=== PATIENT | female | born 1995 | race American Indian/Alaskan Native ===

== ENCOUNTER 2017-07-30 11:13 | Outpatient (CLI) | payer BC, MEDICAID ==
[2017-07-30 11:45] VITALS: BP 127/61
--- NOTE | 2017-07-30 12:55 | Ultrasound Report ---
ULTRASOUND OB LIMITED History: Placenta scan Technique: Transabdominal ultrasound with Doppler interrogation. Gestation: Single Position: Cephalic Placenta: Fundal Placental Grade: 1 No evidence for abruption. Heart Rate: 148 BPM
[2017-07-30] MEDS ORDERED: LACTATED RINGERS 500 ML IV ONE (15:01)
== END 2017-07-30 16:08 | disposition home or self-care (01) ==
LOC: TRG 11:13 → LD 11:14 → TRG 16:08
PROVIDERS: ATTEND Obstetrics & Gynecology
DX: O47.03 False labor before 37 completed weeks of gestation, third trimester (principal); Z3A.32 32 weeks gestation of pregnancy
CPT/HCPCS: 59025; 76815

== ENCOUNTER 2017-08-14 19:04 | Outpatient (CLI) | payer MEDICAID, OTHER ==
[2017-08-14] MEDS ORDERED: LACTATED RINGERS 500 ML IV ONE (20:32)
[2017-08-14 22:46] LABS: Bilirubin,Urine NEG (Negative); Blood,Urine NEG (Negative); Color,Urine Yellow (Yellow); Mucus,Urine FEW /HPF; Nitrite,Urine NEG (Negative); Protein,Urine <15 mg/dL mg/dL (Negative); Urobilinogen,Urine < 2.0 mg/dL (<2.0)
[2017-08-14 23:05] VITALS: BP 139/75
== END 2017-08-14 20:52 | disposition home or self-care (01) ==
LOC: TRG 19:04
PROVIDERS: ATTEND Obstetrics & Gynecology
DX: O36.8130 Decreased fetal movements, third trimester, not applicable or unspecified (principal); Z3A.34 34 weeks gestation of pregnancy
CPT/HCPCS: 59025; 81001

== ENCOUNTER 2017-08-28 10:03 | Inpatient (IN) | payer MEDICAID ==
[2017-08-28] MEDS ORDERED: LACTATED RINGERS 500 ML IV ONE (10:28)
[2017-08-28] MEDS ORDERED: SUBLIMAZE IV ONE (10:38)
[2017-08-28] MEDS ORDERED: SUBLIMAZE ONE (11:26)
[2017-08-28] MEDS ORDERED: BRETHINE IVP PRN ×2 (14:13→14:19)
[2017-08-28] MEDS ORDERED: ZOFRAN IV PRN (14:13)
[2017-08-28] MEDS ORDERED: NARCAN 0.4 MG/1 ML IV PRN ×2 (14:13→22:42)
[2017-08-28] MEDS ORDERED: SUBLIMAZE IV PRN ×2 (14:13→14:19)
[2017-08-28] MEDS ORDERED: ePHEDrine SULFATE IV PRN ×3 (14:13→15:50)
[2017-08-28] MEDS ORDERED: XYLOCAINE 2% INFILTRATI ONE ×2 (14:13→14:19)
[2017-08-28] MEDS ORDERED: MINERAL OIL PO PRN ×2 (14:13→14:19)
[2017-08-28] MEDS ORDERED: BRETHINE SUB-Q PRN ×2 (14:13→14:19)
[2017-08-28] MEDS ORDERED: STADOL IV PRN (14:19)
[2017-08-28] MEDS ORDERED: POLYCILLIN/NS 2 GM/100 ML 2 GM/100 ML BAG IV ONE (14:20)
[2017-08-28] MEDS ORDERED: STADOL ONE (14:26)
[2017-08-28] MEDS ORDERED: PITOCin/NS 20 UNIT/1000ML DRIP 20 UNITS/1,000 ML BAG IV SCH ×4 (15:00→23:00)
[2017-08-28] MEDS ORDERED: LACTATED RINGERS 1,000 ML IV SCH ×3 (15:00→21:00)
[2017-08-28 15:13] LABS: Hematocrit 36.5 % (30.3-42.9); Hemoglobin 12.1 gm/dl (10.1-14.3); Mean Corpuscular HGB Conc 33 % (30-34); Mean Corpuscular Hemoglobin 31 pg (28-32); Mean Corpuscular Volume 93 fl (79-97); Platelet Count 180 K/mm3 (140-440); Red Blood Count 3.93 M/mm3 (3.65-5.03); Red Cell Distribution Width 14.6 % (13.2-15.2)
[2017-08-28] MEDS ORDERED: NACL 0.45% 1000 ML 0 ML IV ONE (15:45)
[2017-08-28] MEDS ORDERED: NACL 0.9% 1000 ML 1,000 ML ONE ×2 (15:47→18:15)
[2017-08-28] MEDS ORDERED: NARCAN 2 MG/2 ML IV PRN (15:50)
--- NOTE | 2017-08-28 15:50 | Anesthesia Consultation ---
Anesthesia Consult and Med Hx Date of service: 08/28/17 - Airway Anesthetic Teeth Evaluation: Good ROM Head & Neck: Adequate Mental/Hyoid Distance: Adequate Mallampati Class: Class II Intubation Access Assessment: Probably Good - Pre-Operative Health Status ASA Pre-Surgery Classification: ASA3 Proposed Anesthetic Plan: Epidural, Spinal - Pulmonary Hx Asthma: No - Cardiovascular System Hx Hypertension: No - Central Nervous System Hx Seizures: No Hx Psychiatric Problems: No - Endocrine Hx Renal Disease: No Hx Hypothyroidism: No Hx Hyperthyroidism: No - Hematic Hx Anemia: No Hx Sickle Cell Disease: No - Other Systems Hx Alcohol Use: No Hx Obesity: Yes (BMI 41.6)
[2017-08-28] MEDS ORDERED: fentaNYL-BUPIV 2 MCG/ML-0.125% 200 MCG/100 ML BAG EPIDURAL SCH (16:00)
[2017-08-28] MEDS ORDERED: AMPICILLIN/NS 1 GM/50 ML 1 GM/50 ML BAG IV SCH (18:00)
--- NOTE | 2017-08-28 18:56 | History and Physical Report ---
History of Present Illness Date of examination: 08/28/17 Date of admission: 08/28/17 10:04 Chief complaint: Contractions History of present illness: 21yo AA Fe RICCARDO 09/20/2017 (LMP), 36 weeks 5 days presented with contractions starting this am at 0730. Cervical change from 1cm/thick to 3cm noted after walking. Admit for Spontaneous labor. Pt initiated early care with [facility] at 6+ wks. 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 denies: abnormal PAP smear (HSV2, On supression), hepatitis B, hepatitis C, HIV, syphilis Family/Genetic History: hypertension, cancer (Breast), other (Asthma) Social history: no significant social history, lives with family, full code. denies: smoking, alcohol abuse, prescription drug abuse, IV drug use - Obstetrical History Expected Date of Delivery: 09/20/17 Actual Gestation: 36 Week(s) 5 Day(s) : 2 Para: 1 Hx # Term Pregnancies: 1 Number of Pregnancies: 0 Spontaneous Abortions: 0 Induced : 0 Number of Living Children: 1 #1 Infant Gender: Female year: 2[age][birth year] Birthweight: 3.345 kg Method of Delivery: Vaginal Gestational age at delivery: 40 Complications: none Medications and Allergies Allergies Allergy/AdvReac Type Severity Reaction Status Date / Time No Known Allergies Allergy Verified 08/14/17 20:32 Active Meds: Active Medications Butorphanol Tartrate (Stadol) 2 mg IV Q2H PRN PRN Reason: Pain , Severe (7-10) Last Admin: 08/28/17 14:30 Dose: 2 mg Ephedrine Sulfate (Ephedrine Sulfate) 10 mg IV Q2M PRN PRN Reason: Hypotension Ephedrine Sulfate (Ephedrine Sulfate) 10 mg IV Q2M PRN PRN Reason: Hypotension Stop: 08/29/17 15:49 Fentanyl (Sublimaze) 100 mcg IV Q2H PRN PRN Reason: Labor Pain Lactated Ringer's (Lactated Ringers) 1,000 mls @ 125 mls/hr IV DIRECT VINCENT Last Admin: 08/28/17 14:41 Dose: 125 mls/hr Oxytocin/Sodium Chloride (Pitocin/Ns 20 Unit/1000ml Drip) 20 units in 1,000 mls @ 125 mls/hr IV DIRECT VINCENT Fentanyl/Bupivacaine/Sodium Chlor (Fentanyl-Bupiv 2 Mcg/Ml-0.125%) 200 mcg in 100 mls @ 12 mls/hr EPIDURAL TITR VINCENT; Protocol Last Admin: 08/28/17 16:59 Dose: 12 mls/hr Ampicillin Sodium (Ampicillin/Ns 1 Gm/50 Ml) 1 gm in 50 mls @ 100 mls/hr IV Q4HR VINCENT Mineral Oil (Mineral Oil) 30 ml PO QHS PRN PRN Reason: Constipation Naloxone HCl (Narcan 2 Mg/2 Ml) 0.2 mg IV Q5M PRN PRN Reason: Respiratory sedation Ondansetron HCl (Zofran) 4 mg IV Q8H PRN PRN Reason: Nausea And Vomiting Terbutaline Sulfate (Brethine) 0.25 mg SUB-Q ONCE PRN PRN Reason: Hyperstimulation/Hypertonicity Terbutaline Sulfate (Brethine) 0.25 mg IVP ONCE PRN PRN Reason: Hyperstimulation/Hypertonicity Review of Systems All systems: negative Cardiovascular: no chest pain, no shortness of breath Breasts: deferred Gastrointestinal: abdominal pain, no nausea, no vomiting, no diarrhea, no constipation Genitourinary: normal appearance (gravid), pelvic pain, contractions, no vaginal bleeding, no vaginal discharge, no leakage of fluid Rectal Exam: deferred Integumentary: no rash - Physical Exam Breasts: Positive: deferred (Hx Bilateral Fibroadenomas) Cardiovascular: Regular rate, Normal S1, Normal S2 Lungs: Positive: Clear to auscultation, Normal air movement Abdomen: Positive: normal appearance (gravid), soft, normal bowel sounds Genitourinary (Female): Positive: normal external genitalia, normal perenium Vulva: both: normal Vagina: Positive: normal moisture Uterus: Positive: enlarged (S=D) Anus/Rectum: Positive: normal perianal skin. Negative: hemorrhoids Deep Tendon Reflex Grade: Normal +2 - Obstetrical FHR: auscultation normal Uterine Contraction Monitor Mode: External Cervical Dilatation: 6 (AROM, lg amt clear fluid, foul smelling) Cervical Effacement Percentage: 90 station: -2 Uterine Contraction Frequency (min): 2-3 Uterine Contraction Pattern: Regular Uterine Tone Measurement Phase: Resting Uterine Contraction Intensity: Moderate Results Result Diagrams: 08/28/17 14:53 Abnormal lab results 08/28/17 Range/Units 14:53 WBC 18.6 H (4.5-11.0) K/mm3 All other labs normal. Assessment and Plan A: IUP at 36w5d Category 1 tracing Active labor Comfortable with epidural GBS positive: Ampicillin 2 grams given Suspected Chorioamnitis: AROM: lg clear fluid, foul smelling, Maternal Temp 100.3, WBC 18.6 P: Routine intrapartum care Tylenol for fever Add Gentamycin (pharmacy to dose) Q 12 hours x 3 doses Anticipate
[2017-08-28] MEDS ORDERED: GARAMYCIN/NS 100 MG/100 ML 100 MG/100 ML BAG IV SCH (20:00)
[2017-08-28] MEDS ORDERED: BICITRA PO ONE (20:23)
[2017-08-28] MEDS ORDERED: PEPCID IV ONE ×2 (20:23→20:26)
[2017-08-28] MEDS ORDERED: REGLAN IV ONE (20:23)
--- NOTE | 2017-08-28 20:25 | Progress Note ---
Assessment and Plan A: IUP at 36w5d Category 2 tracing Failure to progress Chorioamnitis: Purlent fluid, foul smelling, Maternal Temp now 103.0 P: Report to Dr. Wili MD: C/S called Tylenol for fever Gentamycin 100mg Now Subjective - Subjective Date of service: 08/28/17 (20:16) Principal diagnosis: IUP 36w5d, Chorioamnitis, Failure to progress Interval history: 21yo AA Fe RICCARDO 09/20/2017 (LMP), 36 weeks 5 days presented with contractions starting this am at 0730. Cervical change from 1cm/thick to 3cm noted after walking. Admit for Spontaneous labor. Pt initiated early care with [facility] at 6+ wks. 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 Obesity BMI 38, Hgb A1C 5.4 Positive Chlamydia(02/06/17)PEGGY Negative (02/28/18) APA referral: EFW 93%, Pericardial effusion Patient reports: movement normal, contractions Objective - Vital Signs Vital Signs: Vital Signs - 12hr 08/28/17 08/28/17 19:00 20:09 Temperature 100.3 F H 103.0 F H - Exam Abdomen: Present: soft, normal bowel sounds Vulva: both: normal Uterus: Present: normal FHR: category 2 FHR comments: Tachy 180s, minimal varibility, ccasional variables Uterine Contraction Monitor Mode: Internal Cervical Dilatation: 6 (purlent, foul smelling fluid) Cervical Effacement Percentage: 75 (swelling from 6-12 o'clock) station: -1, caput noted, OP presentation Uterine Contraction Frequency (min): 2-3 Uterine Contraction Duration: 60 Uterine Contraction Pattern: Regular Uterine Tone Measurement Phase: Resting Uterine Contraction Intensity: Moderate Extremities: normal - Labs Labs: Abnormal Labs 08/28/17 14:53 WBC 18.6 H Laboratory Results - last 24 hr 08/28/17 08/28/17 14:44 14:53 WBC 18.6 H RBC 3.93 Hgb 12.1 Hct 36.5 MCV 93 MCH 31 MCHC 33 RDW 14.6 Plt Count 180 Blood Type A POSITIVE Antibody Screen Negative
[2017-08-28] MEDS ORDERED: TYLENOL ONE (20:26)
[2017-08-28] MEDS ORDERED: REGLAN ONE (20:26)
[2017-08-28] MEDS ORDERED: ANCEF/STERILE WATER 2 GM/20 ML 2 GM/20 ML SYRINGE IV NR (21:00)
[2017-08-28] MEDS ORDERED: XYLOCAINE MPF 2% ONE ×2 (21:55→22:23)
[2017-08-28] MEDS ORDERED: GARAMYCIN 0 MG in NACL 0.9% 100 ML IV SCH (22:00)
[2017-08-28] MEDS ORDERED: MORPHINE ONE (22:22)
[2017-08-28] MEDS ORDERED: ASTRAMORPH PF 10MG/10ML ONE (22:24)
[2017-08-28] MEDS ORDERED: TYLENOL PO PRN (22:42)
[2017-08-28] MEDS ORDERED: MYLICON PO PRN (22:42)
[2017-08-28] MEDS ORDERED: MILK OF MAGNESIA PO PRN (22:42)
[2017-08-28] MEDS ORDERED: LANSINOH TP PRN (22:42)
[2017-08-28] MEDS ORDERED: SENOKOT PO PRN (22:42)
[2017-08-28] MEDS ORDERED: TORADOL IV PRN (22:42)
[2017-08-28] MEDS ORDERED: TUCKS PAD TP PRN (22:42)
--- NOTE | 2017-08-28 22:42 | Operative Report ---
Operative Report Operative Report: Date of procedure: 08/28/2017 Pre-operative diagnosis: 1. Intrauterine at 36-5/7 weeks in labor 2. Non-reassuring surveillance 3. Chorioamnionitis 4. Failure to progress Post-operative diagnosis: Same Procedure name(s): Primary low transverse section Surgeon: Juan Rasheed MD Cardroom Attendant: None Anesthesia: Epidural anesthesia by Dr. Ortiz EBL: 600 mL Findings: A 3045 g female Apgars 8 at 1 minute 9 at 5 minutes. Cloudy amniotic fluid. Normal uterus. Normal tubes and ovaries bilaterally. Procedure: After the patient was prepped and draped in usual sterile fashion, and after satisfactory level of epidural anesthesia was obtained, the skin knife was used to make a transverse skin incision. The incision was excised down to layer of the fascia, which was nicked in the midline and extended laterally using the Bovie cautery. The rectus muscles were dissected off the rectus fascia both superiorly and inferiorly. The rectus bellies in the midline, and the peritoneum was entered under direct visualization. The peritoneal incision was extended superiorly and inferiorly. A bladder flap was created and the bladder blade was then placed. The uterus was scored in a curvilinear linear fashion, entered in the midline revealing clear amniotic fluid. The 's head was delivered onto the surgical field, and the oropharynx and nasopharynx were bulb suctioned. The rest of the 's body was delivered, cord was doubly clamped and cut and the was handed to the waiting respiratory team. The placenta was manually removed from the uterus, and the uterus removed from its normal anatomical position. After gentle uterine lavage, the incision was inspected and found to be without extensions. It was then closed in 2 layers using 0 Vicryl suture in a running interlocking fashion, the second layer imbricating the first. After good hemostasis was achieved, copious amounts or irrigation was performed, and the gutters were suctioned free of blood and blood clots. Tisseel sealant was sprayed across the uterine incision. The uterus was then returned to its normal anatomical position, and after excellent hemostasis assured, the peritoneum was re- approximated using 3-0 Vicryl suture in a running interlocking fashion, and then the rectus muscles were re-approximated using 3-0 Vicryl suture in a figure -of-eight configuration. The fascia was then re-approximated using 0 Vicryl suture in running interlocking fashion. The subcutaneous layer was made hemostatic using Bovie cautery, the Tisseel sealant was sprayed across the fascial incision and the skin edges re-approximated using 4-0 Vicryl suture in a sub-cuticular fashion. Patient tolerated the procedure well was transported to recovery in stable condition.
[2017-08-28] MEDS ORDERED: ANCEF/NS 1 GM/50 ML 1 GM/50 ML BAG IV SCH (23:00)
[2017-08-28] MEDS ORDERED: SODIUM CHLORIDE FLUSH SYRINGE 10 ML IV PRN (23:00)
[2017-08-28] MEDS ORDERED: D5LR 1,000 ML IV SCH (23:00)
[2017-08-29] MEDS: ceFAZolin 1 GM in NACL 0.9% 20 ML IV SCH ×2 (03:59→12:14)
[2017-08-29] MEDS: GARAMYCIN/NS 80 MG/100 ML 100 ML IV SCH ×3 (04:00→20:37)
[2017-08-29] MEDS: PERCOCET 5/325 PO PRN ×3 (08:17→21:27)
--- NOTE | 2017-08-29 10:21 | Progress Note ---
Assessment and Plan A: POD #1 Maternal Fever P: Follow Routine PostOp orders Continue ABX as directed Subjective - Subjective Date of service: 08/29/17 Principal diagnosis: IUP 36w5d, Chorioamnitis, Failure to progress Patient reports: appetite normal, voiding normally (Burrows in place), pain well controlled, flatus [place]: in NICU Objective - Vital Signs Latest vital signs: Vital Signs Temp Pulse Resp BP BP Pulse Ox 08/29/17 08:17 20 08/29/17 08:02 98.4 F 90 126/76 100 08/29/17 04:50 98.4 F 97 H 20 131/56 08/29/17 00:36 99.4 F 115 H 22 121/55 98 08/29/17 00:00 122 H 20 131/75 98 08/28/17 23:45 116 H 20 131/80 99 08/28/17 23:30 113 H 20 130/78 99 08/28/17 23:25 111 H 20 124/81 99 08/28/17 23:20 101.2 F H 113 H 20 127/80 97 08/28/17 21:32 20 08/28/17 20:09 103.0 F H 08/28/17 19:00 100.3 F H Intake and Output 08/28/17 08/29/17 08/29/17 22:59 06:59 14:59 Intake Total 120 120 Output Total 1200 700 Balance -1080 -580 Intake: Oral 120 120 Output: Urine 1200 700 Indwelling Catheter 900 700 Uretheral (Burrows) 300 Other: Total, Intake Amount 120 120 Total, Output Amount 900 700 Estimated Blood Loss 600 - Exam Breasts: Present: normal Cardiovascular: Present: Regular rate Lungs: Present: Clear to auscultation, Normal air movement Abdomen: Present: normal appearance, soft, normal bowel sounds Uterus: Present: normal, firm, fundal height below umbilicus Extremities: Present: normal Incision: Present: normal, dry, intact - Labs Labs: Abnormal lab results 08/28/17 Range/Units 14:53 WBC 18.6 H (4.5-11.0) K/mm3
[2017-08-29] MEDS: PRENATAL VITAMIN PO SCH (10:23)
[2017-08-29] MEDS: FEOSOL PO SCH (10:23)
[2017-08-29 10:43] LABS: Hemoglobin 10.6 gm/dl (10.1-14.3)
[2017-08-29] MEDS: MOTRIN PO PRN ×2 (11:32→17:48)
[2017-08-29] MEDS ORDERED: M-M-R II VACCINE SUB-Q ONE (22:44)
[2017-08-30] MEDS: MOTRIN PO PRN ×3 (00:46→21:16)
[2017-08-30] MEDS ORDERED: BOOSTRIX IM ONE (04:00)
--- NOTE | 2017-08-30 04:00 | Progress Note ---
Assessment and Plan A: POD #2 s/p Maternal Fever P: Follow Routine PostOp Orders D/C IV ABX; Continue to monitor temps Subjective - Subjective Date of service: 08/30/17 Principal diagnosis: IUP 36w5d, Chorioamnitis, Failure to progress Patient reports: appetite normal, voiding normally, pain well controlled, flatus , ambulating normally [place]: in NICU, bottle feeding (and ) Objective - Vital Signs Latest vital signs: Vital Signs Temp Pulse Resp BP BP Pulse Ox 08/29/17 23:09 98.4 F 94 H 18 123/52 08/29/17 17:48 20 08/29/17 17:43 97.7 F 83 18 119/60 100 08/29/17 15:31 20 08/29/17 13:13 98.4 F 85 18 120/72 97 08/29/17 11:32 20 08/29/17 08:17 20 08/29/17 08:02 98.4 F 90 126/76 100 08/29/17 04:50 98.4 F 97 H 20 131/56 Intake and Output 08/29/17 08/29/17 08/30/17 14:59 22:59 06:59 Intake Total 460 560 180 Output Total 2000 500 Balance -1540 60 180 Intake: IV 100 Garamycin/Ns 80 mg/100 ml 100 100 ml @ 200 mls/hr IV Q8H [facility] Rx#:[id number] Oral 360 360 Intake, Free Water 200 180 Output: Urine 2000 500 Indwelling Catheter 1500 Void 500 500 Other: Total, Intake Amount 240 360 Total, Output Amount 500 500 # Voids Indwelling Catheter 1 - Exam Breasts: Present: normal Cardiovascular: Present: Regular rate Lungs: Present: Clear to auscultation, Normal air movement Abdomen: Present: normal appearance, soft, normal bowel sounds Uterus: Present: normal, firm, fundal height below umbilicus Extremities: Present: normal Incision: Present: normal, dry, intact
[2017-08-30] MEDS ORDERED: GARAMYCIN/NS 80 MG/100 ML 100 ML IV ONE (04:30)
[2017-08-30] MEDS: NORCO 5/325 PO PRN ×2 (11:31→21:15)
[2017-08-30] MEDS: PRENATAL VITAMIN PO SCH (11:32)
[2017-08-30] MEDS: FEOSOL PO SCH (11:32)
[2017-08-31] MEDS: PERCOCET 5/325 PO PRN ×2 (08:00→14:50)
--- NOTE | 2017-08-31 10:01 | Progress Note ---
Assessment and Plan A: Post-op day 3, stable s/p chorioamnionitis, WBC's 18.6 on admission Afebrile >24 hours Pumping, baby in NICU P: Routine post-op care Repeat CBC Plan discharge today, may room-in if room available Subjective - Subjective Date of service: 08/31/17 Principal diagnosis: IUP 36w5d, Chorioamnitis, Failure to progress Patient reports: appetite normal, voiding normally, pain well controlled, bowel movement, ambulating normally : in NICU, bottle feeding (mom pumping ) Objective - Vital Signs Latest vital signs: Vital Signs Temp Pulse Resp BP BP Pulse Ox 08/31/17 00:59 98.9 F 88 18 99/50 08/30/17 21:16 18 08/30/17 21:15 18 08/30/17 15:31 98.2 F 89 20 121/53 97 Intake and Output 08/30/17 08/31/17 08/31/17 23:59 07:59 15:59 Intake Total 600 240 Balance 600 240 Intake: Oral 120 Intake, Free Water 480 240 Other: Total, Intake Amount 120 # Voids Void 1 1 - Exam Breasts: Present: normal Cardiovascular: Present: Regular rate Lungs: Present: Clear to auscultation Abdomen: Present: normal appearance, soft Vulva: both: normal Uterus: Present: normal, firm, fundal height at umbilicus Extremities: Present: normal Deep Tendon Reflex Grade: Normal +2 Incision: Present: normal, dry, intact
--- NOTE | 2017-08-31 10:06 | Discharge Summary ---
Providers - Providers Date of Admission: 08/28/17 10:04 Date of discharge: 08/31/17 Attending physician: SUZANNE MIRANDA MD Primary care physician: SUZANNE MIRANDA MD Hospitalization Reason for admission: active labor, labor (36w5d) Delivery: (failure to progress, chorioamnionitis) Procedure: section Episiotomy: none Laceration: none Incision: normal, dry, intact Other procedures: none complications: none Discharge diagnosis: delivery baby: female (3045g, in NICU) Condition at discharge: Good Disposition: DC-01 TO HOME OR SELFCARE Plan - Discharge Medications Prescriptions: Ferrous Sulfate [Feosol 325 MG tab] 325 mg PO BID #60 tablet HYDROcodone/APAP 5-325 [[place] 5/325] 1 each PO Q6HR PRN #30 tablet PRN Reason: Pain Ibuprofen [Motrin] 800 mg PO Q8HR PRN #30 tablet PRN Reason: Moder Pain Unrelieved By [place] Vit Calc,Iron,Folic [ Vitamins] 1 each PO DAILY #30 tablet - Provider Discharge Summary Activity: routine, no sex for 6 weeks, no heavy lifting 4 weeks, no strenuous exercise Diet: routine Instructions: routine Additional instructions: [] Smoking cessation referral if applicable(refer to patient education folder for contact #) [] Refer to [facility]'s [facility] Center Booklet Call your doctor immediately for: * Fever > 100.5 * Heavy vaginal bleeding ( >1 pad per hour) * Severe persistent headache * Shortness of breath * Reddened, hot, painful area to leg or breast * Drainage or odor from incision. * Keep incision clean and dry at all times and follow doctor's instructions regarding bathing/showering - Follow up plan Follow up: SUZANNE MIRANDA MD [Primary Care Provider] - 14 Days
[2017-08-31] MEDS: FEOSOL PO SCH (11:00)
[2017-08-31] MEDS: PRENATAL VITAMIN PO SCH (11:00)
[2017-08-31 11:49] LABS: Hematocrit 29.7 % (30.3-42.9); Hemoglobin 9.8 gm/dl (10.1-14.3); Mean Corpuscular HGB Conc 33 % (30-34); Mean Corpuscular Hemoglobin 31 pg (28-32); Mean Corpuscular Volume 94 fl (79-97); Platelet Count 190 K/mm3 (140-440); Red Blood Count 3.16 M/mm3 (3.65-5.03); Red Cell Distribution Width 14.7 % (13.2-15.2)
[2017-08-31 12:42] LABS: Basophils % (Manual) 0 % (0.0-1.8); RBC Morphology Normal; Total Cells Counted 100
[2017-08-31 17:33] VITALS: BP 100/47
== END 2017-08-31 23:06 | disposition home or self-care (01) | DRG 765 ==
LOC: TRG 10:03 → LD 10:04 → OB 08-29 00:45
PROVIDERS: ADMIT Obstetrics & Gynecology; ATTEND Obstetrics & Gynecology
PROC: 10D00Z1 Extraction of Products of Conception, Low, Open Approach (ICD-10-PCS; principal; 2017-08-28)
PROC: 10907ZC Drainage of Amniotic Fluid, Therapeutic from Products of Conception, Via Natural or Artificial Opening (ICD-10-PCS; 2017-08-28)
PROC: 3E0234Z Introduction of Serum, Toxoid and Vaccine into Muscle, Percutaneous Approach (ICD-10-PCS; 2017-08-30)
DX: O41.1230 Chorioamnionitis, third trimester, not applicable or unspecified (principal); O60.14X0 Preterm labor third trimester with preterm delivery third trimester, not applicable or unspecified; O62.2 Other uterine inertia; O99.214 Obesity complicating childbirth; O99.824 Streptococcus B carrier state complicating childbirth; O76 Abnormality in fetal heart rate and rhythm complicating labor and delivery; Z3A.36 36 weeks gestation of pregnancy; Z37.0 Single live birth; Z68.41 Body mass index [BMI] 40.0-44.9, adult; Z82.49 Family history of ischemic heart disease and other diseases of the circulatory system; Z82.5 Family history of asthma and other chronic lower respiratory diseases; Z80.3 Family history of malignant neoplasm of breast; Z23 Encounter for immunization; O98.52 Other viral diseases complicating childbirth; B00.9 Herpesviral infection, unspecified
CPT/HCPCS: 36415; 85007; 85014; 85018; 85025; 85027; 86850; 86900; 86901; 88307; 90471; 90715; 99211; C9250; G0463; J0290; J0595; J0690; J1580; J1885; J2270; J2274; J2590; J2765; J3010; J7030; J7120; J7121